=== PATIENT | male | born 1985 | race Two or more races ===

== ENCOUNTER 2016-09-26 02:20 | Emergency (ER) | payer SELFPAY ==
[~2016-09-26] VITALS: Ht 177.8 cm; Wt 72.6 kg
[2016-09-26 02:41] VITALS: BP 138/83
[2016-09-26] MEDS ORDERED: IBUPROFEN 400 MG TABLET PO ONE (04:30)
== END 2016-09-26 04:32 | disposition home or self-care (01) ==
LOC: ER 02:23
DX: S16.1XXA Strain of muscle, fascia and tendon at neck level, initial encounter (principal); V43.12XA Car passenger injured in collision with other type car in nontraffic accident, initial encounter; Y93.89 Activity, other specified; Y92.488 Other paved roadways as the place of occurrence of the external cause; Y99.8 Other external cause status
CPT/HCPCS: 99283; A4606; Z7610